=== PATIENT | male | born 1990 | race African-American/Black ===

== ENCOUNTER 2025-04-05 22:51 | Emergency (ER) | payer MEDICAID ==
[~2025-04-05] VITALS: Ht 180.3 cm; Wt 103.0 kg
[2025-04-05 23:01] VITALS: O2SAT 99
[2025-04-05 23:36] LABS: CLARITY URINE CLEAR (CLEAR); COLOR URINE YELLOW (YELLOW); GLUCOSE URINE NEGATIVE (NEGATIVE); KETONES URINE NEGATIVE (NEGATIVE); LEUKOCYTE ESTERASE URINE NEGATIVE (NEGATIVE); NITRITE URINE NEGATIVE (NEGATIVE); OCCULT BLOOD URINE NEGATIVE (NEGATIVE); PH URINE 6.5 (4.5-8.0); PROTEIN URINE NEGATIVE (NEGATIVE); SPECIFIC GRAVITY URINE 1.021 (1.005-1.030); UROBILINOGEN URINE 0.2 E.U./dL (0.2-1.0)
[2025-04-05 23:43] LABS: BASOPHILS % 0.5 % (0.0-2.0); EOSINOPHILS % 1.8 % (0.0-5.0); HEMATOCRIT. 46.6 % (42.0-52.0); HEMOGLOBIN. 15.5 g/dL (14.0-18.0); LYMPHOCYTES % 50.4 % (20.0-50.0); MEAN PLATELET VOLUME 7.8 fl (7.4-10.4); MONOCYTES % 9.9 % (2.0-8.0); NEUTROPHILS % 37.4 % (40.0-76.0); PLATELET 273 x1000/uL (130-400); RED BLOOD CELL COUNT 5.34 mill/uL (4.7-6.1); RED CELL DISTRIBUTION WIDTH 12.8 % (11.6-14.6)
[2025-04-05 23:56] LABS: CREATININE 1.3 mg/dL (0.6-1.3); UREA NITROGEN BLOOD 13 mg/dL (9-23)
[2025-04-05 23:58] LABS: ASPARTATE AMINOTRANSFERASE 26 IU/L (<34); BILIRUBIN DIRECT < 0.1 mg/dL (<=3.0); BILIRUBIN TOTAL 0.3 mg/dL (0.1-1.0); PROTEIN TOTAL 7.6 g/dL (6.0-8.3)
[2025-04-06] MEDS ORDERED: NAPR-1176 MT (00:49)
[2025-04-06] MEDS: KETOROLAC 15MG/ML VIAL IM ONE (00:55)
[2025-04-06] MEDS: LIDOCAINE 5% PATCH TOP SCH (00:56)
[2025-04-06 01:00] VITALS: BP 147/95; PULSE 65; RESP 18; TEMP 36.7; O2SAT 98
== END 2025-04-06 01:14 | disposition home or self-care (01) ==
LOC: ER 22:57
DX: R10.84 Generalized abdominal pain (principal); R10.A1 Flank pain, right side; R25.2 Cramp and spasm; I10 Essential (primary) hypertension; Z79.1 Long term (current) use of non-steroidal anti-inflammatories (NSAID)
CPT/HCPCS: 99283; 80076; 80048; 81003; 83690; 85025; 36415; 96372; J1885